=== PATIENT | male | born 1940 | race Caucasian/White ===

== ENCOUNTER 2017-10-30 09:56 | Day surgery (SDC) | payer MEDICARE ==
[2017-10-29 17:33] LABS: BASOPHILS % (AUTO) 1.2 % (0.0-5.0); LYMPHOCYTES % (AUTO) 10.8 % (21.0-51.0); MEAN CORPUSCULAR HEMOGLOBIN 30.2 pg (27.0-33.0); MEAN CORPUSCULAR HGB CONC 33.6 g/dL (32.0-36.0); MEAN CORPUSCULAR VOLUME 89.8 fL (79-99); MONOCYTES % (AUTO) 9.3 % (3.0-13.0); NEUTROPHILS % (AUTO) 77.7 % (40.0-77.0); PLATELET COUNT (AUTO) 207 K/uL (130-400); RED BLOOD CELL COUNT(AUTO) 5.23 MIL/uL (4.50-6.20); RED CELL DISTRIBUTION WIDTH 17.8 % (11.0-15.5); WHITE BLOOD COUNT (AUTO) 8.6 K/uL (4.8-10.8)
[2017-10-29 17:41] LABS: CREATININE 2.2 mg/dL (0.5-1.5); POTASSIUM 3.6 mmol/L (3.5-5.1)
[~2017-10-30] VITALS: Ht 172.7 cm; Wt 98.0 kg
[~2017-10-30 09:56] MED LIST: SODIUM CHLORIDE 0.9% 1000ML 1,000 ML IV SCH
[2017-10-30 10:38] VITALS: BP 90/55
[2017-10-30] MEDS ORDERED: OMEP20TA25 PO (10:56)
[2017-10-30] MEDS ORDERED: METO2.5T2 PO (10:56)
[2017-10-30] MEDS ORDERED: FINA5TAB41 PO (10:56)
[2017-10-30] MEDS ORDERED: HUM10VIA SQ ×2 (10:56)
[2017-10-30] MEDS ORDERED: POTA-79 PO (10:56)
[2017-10-30] MEDS ORDERED: SPIR25TA6 PO (10:56)
[2017-10-30] MEDS ORDERED: FURO40TA5 PO (10:56)
[2017-10-30] MEDS ORDERED: RIVA15TA PO (10:56)
[2017-10-30] MEDS ORDERED: ONDA8TAB12 PO (10:56)
[2017-10-30] MEDS ORDERED: METO-391 PO (10:56)
[2017-10-30] MEDS ORDERED: ATOR40TA71 PO (10:56)
[2017-10-30] MEDS ORDERED: DEXTROSE 50%-WATER 50 ML DISP.SYRIN IV ONE (11:07)
[2017-10-30 11:30] VITALS: BP 90/55
[2017-10-30] MEDS ORDERED: MIDAZOLAM HCL 1 MG/ML 2ML VIAL ONE (12:22)
[2017-10-30] MEDS ORDERED: FENTANYL CITRATE PF 50 MCG/1 ML 2ML VIAL ONE (12:22)
== END 2017-10-30 15:10 | disposition home or self-care (01) ==
LOC: DAH 09:56
PROVIDERS: ATTEND Internal Medicine Cardiovascular Disease
DX: I48.91 Unspecified atrial fibrillation (principal); Z88.0 Allergy status to penicillin; Z79.899 Other long term (current) drug therapy; E78.5 Hyperlipidemia, unspecified; I11.0 Hypertensive heart disease with heart failure; I50.43 Acute on chronic combined systolic (congestive) and diastolic (congestive) heart failure; I25.5 Ischemic cardiomyopathy; Z95.1 Presence of aortocoronary bypass graft; E11.9 Type 2 diabetes mellitus without complications; Z98.890 Other specified postprocedural states; K27.9 Peptic ulcer, site unspecified, unspecified as acute or chronic, without hemorrhage or perforation; Z79.4 Long term (current) use of insulin; Z79.84 Long term (current) use of oral hypoglycemic drugs
CPT/HCPCS: 36415; 80048; 82948 ×3; 85025; 92960; 93005 ×2; A4606; J2250; J3010; J7030; J7070; 99156; 99157